=== PATIENT | male | born 1965 | race Caucasian/White ===

== ENCOUNTER 2016-04-04 21:10 | Emergency (ER) | payer OTHER ==
[2016-04-04 21:14] VITALS: BP 141/60; PULSE 88; RESP 16; TEMP 96.8
--- NOTE | 2016-04-04 21:44 | XR ---
EXAMINATION TYPE: XR foot complete RT DATE OF EXAM: 04/04/2016 9:33 PM COMPARISON: 01/15/2016 HISTORY: Foot pain TECHNIQUE: 3 views FINDINGS: I see no fracture nor dislocation. There is an Achilles calcaneal spur. Metatarsals are int act. IMPRESSION: Mild calcaneal spurring. No fracture. No change.
--- NOTE | 2016-04-04 21:45 | XR ---
EXAMINATION TYPE: XR ankle complete RT DATE OF EXAM: 04/04/2016 9:33 PM COMPARISON: 11/28/2015 HISTORY: Injury pain TECHNIQUE: 3 views FINDINGS: I see no fracture nor dislocation. Ankle mortise is anatomic. There is an Achilles calcanea l spur. IMPRESSION: No acute abnormality of the right ankle. No change.
[2016-04-04] MEDS ORDERED: IBUPROFEN 800 MG TAB PO STA (22:07)
--- NOTE | 2016-04-04 22:07 | ED ---
Lower Extremity Injury HPI - General Chief Complaint: Extremity Injury, Lower Stated Complaint: ankle pain Time Seen by Provider: 04/04/16 21:24 Source: patient, RN notes reviewed Mode of arrival: ambulatory Limitations: no limitations - History of Present Illness Initial Comments: Patient is a 50-year-old male presents to the emergency room for evaluation of right ankle pain. Patient states about 3 months ago he injured his right ankle. Patient states been having continuing pain on the medial side of his ankle. Patient states today he slipped on ice injuring his right ankle once again. Patient states he never followed up with an reimbursement specialist during the previous injury. Patient states he is now having continuing pain on the medial side of his ankle. Patient denies any swelling or numbness or tingling in his toes. Patient denies any other injuries during incident. Patient denies head trauma, loss consciousness, neck pain, numbness or tingling in extremities. Patient denies taking anything for his symptoms. - Related Data Home Medications Medication Instructions Recorded Confirmed Sertraline [Zoloft] 50 mg PO DAILY PRN 04/04/16 04/04/16 Allergies Allergy/AdvReac Type Severity Reaction Status Date / Time No Known Allergies Allergy Verified 04/04/16 21:29 Review of Systems ROS Statement: Those systems with pertinent positive or pertinent negative responses have been documented in the HPI. ROS Other: All systems not noted in ROS Statement are negative. Past Medical History Past Medical History: No Reported History History of Any Multi-Drug Resistant Organisms: None Reported Past Surgical History: Appendectomy Past Psychological History: Anxiety, Depression Smoking Status: Never smoker Past Alcohol Use History: None Reported Past Drug Use History: None Reported General Exam - General Exam Comments Initial Comments: Sitting on exam bed in no acute distress. Limitations: no limitations General appearance: alert, in no apparent distress Head exam: Present: atraumatic, normocephalic, normal inspection Eye exam: Present: normal appearance ENT exam: Present: normal exam Neck exam: Present: normal inspection Respiratory exam: Absent: respiratory distress Right Ankle exam: Present: normal inspection, full ROM, tenderness (medial malleolus) . Absent: swelling Foot/Toe exam: Present: normal inspection, full ROM. Absent: tenderness Neurovascular tendon exam: Absent: pulse deficit (2+ dorsal pedal and posterior tibial pulses), abnormal cap refill (Capillary refill less than 2 seconds) Gait: observed and normal Back exam: Present: normal inspection Neurological exam: Present: alert, oriented X3, CN II-XII intact Psychiatric exam: Present: normal affect, normal mood Skin exam: Present: warm, dry, intact, normal color. Absent: rash Course Vital Signs 04/04/16 21:10 Temperature 96.8 F L Pulse Rate 88 Respiratory 16 Rate Blood Pressure 141/60 O2 Sat by Pulse 98 Oximetry Procedures - Orthopedic Splinting/Casting Injury #1 Side: right Lower Extremity Injury Location: ankle Lower Extremity Immobilizer: Yamil wrap Medical Decision Making - Medical Decision Making Patient is a 50-year-old male since emergency room for evaluation of right ankle pain. Right ankle/foot x-ray shows no acute fractures or dislocations. Patient placed in an Yamil wrap and advised reimbursement specialist if symptoms are not improving in 7-10 days. Patient states he understands everything that was discussed with him. Return parameters discussed. Case discussed with Dr. Sweet. - Radiology Data Radiology results: report reviewed, image reviewed Disposition Clinical Impression: Right ankle sprain Disposition: HOME SELF-CARE Condition: Good Instructions: Ankle Sprain (ED) Additional Instructions: Rest, elevate and ice on and off for 10-15 minutes for the next 24-48 hours. Can take Tylenol or Motrin as needed for pain. Please follow-up with reimbursement specialist in 7-10 days if symptoms do not improve. If new symptoms develop or symptoms worsen, please return to the ER. Referrals: Jaycob Martinez MD [Primary Care Provider] - 1-2 days Kyler Bloom MD [STAFF PHYSICIAN] - 1-2 days Time of Disposition: 22:05
== END 2016-04-04 22:28 | disposition home or self-care (01) ==
LOC: EC 21:10
DX: S93.401A Sprain of unspecified ligament of right ankle, initial encounter (principal); F41.9 Anxiety disorder, unspecified; F32.9 Major depressive disorder, single episode, unspecified; W00.0XXA Fall on same level due to ice and snow, initial encounter
CPT/HCPCS: 99283

== ENCOUNTER 2017-01-08 18:02 | Emergency (ER) | payer OTHER ==
[2017-01-08 18:23] VITALS: BP 128/79; PULSE 85; RESP 18; TEMP 97.8
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
--- NOTE | 2017-01-08 19:10 | ED ---
General Adult HPI - General Chief complaint: Chest Pain Stated complaint: chest injury, SOB Time Seen by Provider: 01/08/17 18:27 Source: patient, RN notes reviewed Mode of arrival: ambulatory Limitations: no limitations - History of Present Illness Initial comments: This a 51-year-old male presents emergency Department chief complaint chest wall injury. Patient states a few days ago he was at work states she was walking backwards briskly and states that he turned around right into a metal plate does approximate 2 inches in diameter. Patient states there is an area of bruising states that he's had pain and some pain with deep inspiration. Patient states that he does not have this checked out. Denies any left-sided chest pain no left-sided chest wall injury. He states it's only over his right pectoral region. Patient states his been taking some ibuprofen which has helped some but still has some residual pain. Denies nausea, vomiting diarrhea constipation. Patient offers no other complaints. - Related Data Home Medications Medication Instructions Recorded Confirmed Ibuprofen [Motrin] 800 mg PO Q8H PRN 01/08/17 01/08/17 Previous Rx's Medication Instructions Recorded Acetaminophen-Codeine 300-30mg 1 tab PO Q4H PRN #20 tablet 01/08/17 [Tylenol #3] Allergies Allergy/AdvReac Type Severity Reaction Status Date / Time No Known Allergies Allergy Verified 01/08/17 18:55 Review of Systems ROS Statement: Those systems with pertinent positive or pertinent negative responses have been documented in the HPI. ROS Other: All systems not noted in ROS Statement are negative. Past Medical History Past Medical History: Hypertension History of Any Multi-Drug Resistant Organisms: None Reported Past Surgical History: Appendectomy Past Psychological History: Anxiety, Bipolar, Depression Smoking Status: Never smoker Past Alcohol Use History: None Reported Past Drug Use History: None Reported General Exam Limitations: no limitations General appearance: alert, in no apparent distress Head exam: Present: atraumatic, normocephalic, normal inspection Neck exam: Present: normal inspection, full ROM. Absent: tenderness, meningismus, lymphadenopathy Respiratory exam: Present: normal lung sounds bilaterally, chest wall tenderness (Moderate right anterior chest wall the right pectoral region there is an area of ecchymosis noted). Absent: respiratory distress, wheezes, rales, rhonchi, stridor, decreased breath sounds Cardiovascular Exam: Present: regular rate, normal rhythm, normal heart sounds. Absent: systolic murmur, diastolic murmur, rubs, gallop, clicks GI/Abdominal exam: Present: soft, normal bowel sounds. Absent: distended, tenderness, guarding, rebound, rigid Course Vital Signs 01/08/17 01/08/17 18:20 19:11 Temperature 97.8 F Pulse Rate 85 Respiratory 18 18 Rate Blood Pressure 128/79 O2 Sat by Pulse 99 Oximetry Medical Decision Making - Medical Decision Making 51-year-old male present emergency department for chest wall injury. There is no acute pneumothorax or rib fracture noted. Patient's chest wall contusion. Patient we discharge with pain medication and return parameters were discussed. Disposition Clinical Impression: Chest wall contusion Disposition: HOME SELF-CARE Condition: Stable Instructions: Chest Wall Pain (ED), Contusion in Adults (ED) Additional Instructions: Please return to the Emergency Department if symptoms worsen or any other concerns. Prescriptions: Acetaminophen-Codeine 300-30mg [Tylenol #3] 1 tab PO Q4H PRN #20 tablet PRN Reason: pain Referrals: Jaycob Martinez MD [Primary Care Provider] - 1-2 days Time of Disposition: 19:18
== END 2017-01-08 19:26 | disposition home or self-care (01) ==
LOC: EC 18:02
DX: S20.211A Contusion of right front wall of thorax, initial encounter (principal); W22.09XA Striking against other stationary object, initial encounter; Y99.0 Civilian activity done for income or pay; Y92.69 Other specified industrial and construction area as the place of occurrence of the external cause
CPT/HCPCS: 71020; 99283

== ENCOUNTER 2017-07-06 16:16 | Emergency (ER) | payer OTHER ==
[2017-07-06 16:21] VITALS: BP 131/76; PULSE 78; RESP 20; TEMP 98.1
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
--- NOTE | 2017-07-06 17:01 | XR ---
EXAMINATION TYPE: XR foot complete RT DATE OF EXAM: 07/06/2017 COMPARISON: NONE HISTORY: Shelving fell on foot 11 days prior, burning sensation in leg TECHNIQUE: Three-view right foot FINDINGS: No acute osseous abnormality is evident. Joint spaces are preserved. Soft tissues appear no rmal. IMPRESSION: 1. Unremarkable right foot.
--- NOTE | 2017-07-06 17:37 | ED ---
General Adult HPI - General Chief complaint: Extremity Injury, Lower Stated complaint: rt leg injury Time Seen by Provider: 07/06/17 16:31 Source: patient, RN notes reviewed Mode of arrival: ambulatory Limitations: no limitations - History of Present Illness Initial comments: 51-year-old male presents to the emergency department for a chief complaint of right ankle pain. Patient states that 11 days ago he dropped a beam on his ankle. Patient says it lacerated the skin at the time. He was not seen but cleaned it out and super glued it checked. Patient states that since that time he has had some pain in his left ankle. Patient states he is able to walk on it and move it walking on it does cause some slight pain. Patient denies any signs of infection or fever or chills at home. Patient states he just wants to make sure it isn't broken as it still hurts. Patient denies any other complaints at this time. No pain in the right knee or [place]. No pain in the right foot. Patient denies shortness of breath, chest pain, abdominal pain, nausea or vomiting. - Related Data Previous Rx's Medication Instructions Recorded Cephalexin [Keflex] 500 mg PO Q12HR #20 cap 07/06/17 Allergies Allergy/AdvReac Type Severity Reaction Status Date / Time No Known Allergies Allergy Verified 07/06/17 16:57 Review of Systems ROS Statement: Those systems with pertinent positive or pertinent negative responses have been documented in the HPI. ROS Other: All systems not noted in ROS Statement are negative. Past Medical History Past Medical History: Hypertension History of Any Multi-Drug Resistant Organisms: None Reported Past Surgical History: Appendectomy Past Psychological History: Anxiety, Bipolar, Depression Smoking Status: Never smoker Past Alcohol Use History: None Reported Past Drug Use History: None Reported General Exam Limitations: no limitations Respiratory exam: Present: normal lung sounds bilaterally. Absent: respiratory distress, wheezes, rales, rhonchi, stridor Cardiovascular Exam: Present: regular rate, normal rhythm, normal heart sounds. Absent: systolic murmur, diastolic murmur, rubs, gallop, clicks Extremities exam: Present: full ROM (Patient has full range of motion of the right ankle and is able to walk.), tenderness (Tenderness to the anterior and medial right ankle. Some tenderness to the medial malleolus.), normal capillary refill (Refill less than 2 seconds in the right ankle. Pedal pulse 2+ ), joint swelling (There is very mild swelling of the right ankle.), other ( Patient has a small 2 cm healed laceration on the anterior right lower leg. There is very mild redness around the area. No signs of cellulitis or drainage from the wound.). Absent: pedal edema, calf tenderness Course Vital Signs 07/06/17 16:18 Temperature 98.1 F Pulse Rate 78 Respiratory 20 Rate Blood Pressure 131/76 O2 Sat by Pulse 100 Oximetry Medical Decision Making - Medical Decision Making 51-year-old male presents to the emergency department for chief complaint of ankle pain on the right 11 days. Patient states he dropped a metal beam on his ankle 11 days ago. There was a laceration but he supra glued it together 11 days ago. On exam there is very mild swelling and a healed laceration of the right ankle. There is some redness around the scab but no cellulitic changes or discharge from the wound. X-ray obtained showed no acute fractures or abnormalities of the right foot or ankle. Patient was given a prescription of Keflex to prevent any infection from forming. He states his tetanus is up to date. Patient is to use Motrin or Tylenol for pain relief and follow up with primary care in 1-2 days. He was also educated on the Rice method of therapy. He will return to the emergency department if he has any worsening symptoms. Disposition Clinical Impression: Ankle pain Disposition: HOME SELF-CARE Condition: Good Instructions: Foot Contusion (ED), RICE Therapy (ED) Additional Instructions: Please use Motrin or Tylenol for pain relief. Rest, ice, and elevate the affected ankle as much as possible. Please take Keflex as directed. Please follow-up with primary care provider in one to 2 days otherwise, return to the emergency department if you have worsening symptoms. Prescriptions: Cephalexin [Keflex] 500 mg PO Q12HR #20 cap Is patient prescribed a controlled substance at d/c from ED?: No Referrals: Jaycob Martinez MD [Primary Care Provider] - 1-2 days Time of Disposition: 17:37
== END 2017-07-06 17:41 | disposition home or self-care (01) ==
LOC: EC 16:16
DX: M25.571 Pain in right ankle and joints of right foot (principal); M79.89 Other specified soft tissue disorders; Z87.828 Personal history of other (healed) physical injury and trauma; W20.8XXA Other cause of strike by thrown, projected or falling object, initial encounter; Y92.009 Unspecified place in unspecified non-institutional (private) residence as the place of occurrence of the external cause
CPT/HCPCS: 99283

== ENCOUNTER 2018-02-19 21:52 | Emergency (ER) | payer MEDICARE ==
[2018-02-19 22:02] VITALS: BP 143/81; PULSE 75; TEMP 98.1
--- NOTE | 2018-02-19 22:27 | ED ---
General Adult HPI - General Chief complaint: Chest Pain Stated complaint: Chest pain Source: patient Mode of arrival: ambulatory - History of Present Illness Initial comments: Dictation was produced using [employer] dictation software. please excuse any grammatical, word or spelling errors. Chief Complaint: 52-year-old male with past medical history of hypertension presents with sharp right chest pain. History of Present Illness: 52-year-old male with past medical history of hypertension presents with intermittent episodes of right-sided chest pain. He states that he got home from work. He works at a local [employer]. He put his thing sounds came home. While at home he had a sharp chest pain that radiated to his right chest wrapped around to the front. Patient states he's been expressing intermittent episodes of this for the past several weeks. Patient denies any shortness of breath. The ROS documented in this emergency department record has been reviewed and confirmed by me. Those systems with pertinent positive or negative responses have been documented in the HPI. All other systems are other negative and/or noncontributory. - Related Data Previous Rx's Medication Instructions Recorded Cyclobenzaprine [Flexeril] 10 mg PO TID PRN #20 tab 02/20/18 Allergies Allergy/AdvReac Type Severity Reaction Status Date / Time No Known Allergies Allergy Verified 02/19/18 22:45 Review of Systems ROS Statement: Those systems with pertinent positive or pertinent negative responses have been documented in the HPI. ROS Other: All systems not noted in ROS Statement are negative. Past Medical History Past Medical History: Hypertension History of Any Multi-Drug Resistant Organisms: None Reported Past Surgical History: Appendectomy Past Psychological History: Anxiety, Bipolar, Depression Smoking Status: Never smoker Past Alcohol Use History: Rare Past Drug Use History: None Reported General Exam - General Exam Comments Initial Comments: PHYSICAL EXAM: General Impression: Alert and oriented x3, not in acute distress HEENT: Normocephalic atraumatic, extra-ocular movements intact, pupils equal and reactive to light bilaterally, mucous membranes moist. Cardiovascular: Heart regular rate and rhythm, S1&S2 audible, no murmurs, rubs or gallops Chest: Lungs clear to auscultation bilaterally, no rhonchi, no wheeze, no rales Abdomen: Bowel sounds present, abdomen soft, non-tender, non-distended, no organomegaly Musculoskeletal: Pulses present and equal in all extremities, no peripheral edema Motor: Power 5/5 bilaterally, no focal deficits noted Neurological: CN II-XII grossly intact, no focal motor or sensory deficits noted Skin: Intact with no visualized rashes Psych: Normal affect and mood Course Vital Signs 02/19/18 22:00 Temperature 98.1 F Pulse Rate 75 Respiratory 18 Rate Blood Pressure 143/81 O2 Sat by Pulse 98 Oximetry Medical Decision Making - Medical Decision Making ED course: 52-year-old male presents with chief complaint of atypical chest pain. Vital signs upon arrival are within acceptable limits. Return evaluation obtained showing no acute processes. Patient given intravenous fluids. X-ray shows no acute processes. There is strong clinical suspicion that patient's symptoms arise from arthritis from his back. Still to follow-up with his primary care physician. Patient may benefit from MRI and possible spinal evaluation. Patient given prescription for Flexeril when necessary pain. Patient understandable agreeable to plan. This point there is no clinical suspicion of cardiac pulmonary disease. She'll be discharge. EKG interpretation: Ventricular rate 59, sinus bradycardia,. Interval 134, care is 100, QTC 417. No MO prolongation, no QTC prolongation, no ST or T-wave changes noted. Overall, this EKG is unremarkable - Lab Data Result diagrams: 02/19/18 22:30 02/19/18 22:30 Lab Results 02/19/18 02/19/18 Range/Units 22:30 22:30 WBC 7.0 (3.8-10.6) k/uL RBC 4.46 (4.30-5.90) m/uL Hgb 13.7 (13.0-17.5) gm/dL Hct 40.1 (39.0-53.0) % MCV 90.0 (80.0-100.0) fL MCH 30.7 (25.0-35.0) pg MCHC 34.1 (31.0-37.0) g/dL RDW 12.2 (11.5-15.5) % Plt Count 223 (150-450) k/uL Neutrophils % 56 % Lymphocytes % 34 % Monocytes % 6 % Eosinophils % 2 % Basophils % 0 % Neutrophils # 3.9 (1.3-7.7) k/uL Lymphocytes # 2.4 (1.0-4.8) k/uL Monocytes # 0.4 (0-1.0) k/uL Eosinophils # 0.1 (0-0.7) k/uL Basophils # 0.0 (0-0.2) k/uL Sodium 141 (137-145) mmol/L Potassium 4.1 (3.5-5.1) mmol/L Chloride 106 (98-107) mmol/L Carbon Dioxide 26 (22-30) mmol/L Anion Gap 9 mmol/L BUN 19 (9-20) mg/dL Creatinine 0.81 (0.66-1.25) mg/dL Est GFR (CKD-EPI)AfAm >90 (>60 ml/min/1.73 sqM) Est GFR (CKD-EPI)NonAf >90 (>60 ml/min/1.73 sqM) Glucose 95 (74-99) mg/dL Calcium 9.2 (8.4-10.2) mg/dL Magnesium 2.0 (1.6-2.3) mg/dL Disposition Clinical Impression: Back pain Disposition: HOME SELF-CARE Condition: Good Instructions: Flank Pain (ED) Prescriptions: Cyclobenzaprine [Flexeril] 10 mg PO TID PRN #20 tab PRN Reason: Pain Is patient prescribed a controlled substance at d/c from ED?: No Referrals: Jaycob Martinez MD [Primary Care Provider] - 1-2 days Time of Disposition: 01:22
[2018-02-19] MEDS ORDERED: LIDOCAINE 5% PATCH TOPICAL STA (22:50)
[2018-02-19 23:04] LABS: Basophils % (A) 0 %; Eosinophils # (A) 0.1 k/uL (0-0.7); Eosinophils % (A) 2 %; HCT 40.1 % (39.0-53.0); HGB 13.7 gm/dL (13.0-17.5); Lymphocytes # (A) 2.4 k/uL (1.0-4.8); Lymphocytes % (A) 34 %; MCH 30.7 pg (25.0-35.0); MCHC 34.1 g/dL (31.0-37.0); Mean Platelet Volume 7.2; Monocytes # (A) 0.4 k/uL (0-1.0); Monocytes % (A) 6 %; Neutrophils # (A) 3.9 k/uL (1.3-7.7); Neutrophils % (A) 56 %; Platelet Count 223 k/uL (150-450); RBC 4.46 m/uL (4.30-5.90); RDW 12.2 % (11.5-15.5)
[2018-02-19 23:06] LABS: Anion Gap 9 mmol/L; Blood Urea Nitrogen 19 mg/dL (9-20); Calcium 9.2 mg/dL (8.4-10.2); Carbon Dioxide 26 mmol/L (22-30); Chloride 106 mmol/L (98-107); Glucose 95 mg/dL (74-99); Potassium 4.1 mmol/L (3.5-5.1); Sodium 141 mmol/L (137-145)
--- NOTE | 2018-02-19 23:11 | XR ---
EXAM: XR Chest, 2 Views CLINICAL HISTORY: ITS.REASON XR Reason: Pain TECHNIQUE: Frontal and lateral views of the chest. COMPARISON: No relevant prior studies available. FINDINGS: Lungs: Unremarkable. No consolidation. Pleural space: Unremarkable. No pneumothorax. Heart: Unremarkable. No cardiomegaly. Mediastinum: Unremarkable. Bones/joints: Unremarkable. IMPRESSION: Normal chest x-rays.
[2018-02-20 01:37] VITALS: RESP 17
== END 2018-02-20 01:28 | disposition home or self-care (01) ==
LOC: EC 21:52
DX: M54.9 Dorsalgia, unspecified (principal); R07.89 Other chest pain; R00.1 Bradycardia, unspecified
CPT/HCPCS: 36415; 71046; 80048; 83735; 85025; 93005; 99285

== ENCOUNTER → 2019-12-06 | Outpatient (CLI) | payer OTHER ==
--- NOTE | 2019-12-06 14:39 | XR ---
EXAMINATION TYPE: XR Hip Complete LT DATE OF EXAM: 12/06/2019 COMPARISON: None HISTORY: Pain. TECHNIQUE: 2 view left hip FINDINGS: Femoral head articulates with the acetabulum. No acute fracture or dislocation is evident. Joint spaces preserved. Follow-up exams can be performed 7-10 days from acute trauma for continued pain. IMPRESSION: 1. Normal 2 view left hip
== END | disposition home or self-care (01) ==
LOC: RADXRMAIN 14:20
PROVIDERS: ATTEND Emergency Medicine
DX: M71.552 Other bursitis, not elsewhere classified, left hip (principal)
CPT/HCPCS: 73502

== ENCOUNTER 2021-12-22 16:27 | Emergency (ER) | payer BC, MEDICARE ==
[2021-12-22 16:45] VITALS: TEMP 97.8
[2021-12-22] MEDS ORDERED: DOXYCYCLINE 100 MG CAP PO STA (19:09)
[2021-12-22] MEDS ORDERED: TOBRAMYCIN 0.3% OPHTH OINT 3.5 GM TUBE RIGHT EYE STA (19:09)
--- NOTE | 2021-12-22 19:13 | ED ---
Eye Problem HPI - General Chief complaint: Eye Problems Stated complaint: eye problem Time Seen by Provider: 12/22/21 18:59 Source: patient Mode of arrival: ambulatory Limitations: no limitations - History of Present Illness Initial comments: THIS is a pleasant 56-year-old male with no significant past medical history. He presents to the emergency department today complaining of redness and swelling to his right upper eyelid. Patient states his been going on for about 1 week and seems to be getting worse. Patient has been trying warm compresses. Patient denying any fever or chills. States that he is getting occasional blurred vision as he feels like the eyelid is causing some pressure over his eye itself. He denies any current discharge but did have some crusting from the eye noted this morning. No headache, no fever or chills, no changes in hearing, no sore throat or difficulty with speech, no neck pain, no chest pain or shortness of breath, no abdominal pain, no nausea or vomiting, no changes in urination or bowel movements, no numbness or tingling, no extremity pain, no skin rashes or lesions. Past medical, surgical, social, and family history reviewed. - Related Data Previous Rx's Medication Instructions Recorded Cyclobenzaprine [Flexeril] 10 mg PO TID PRN #20 tab 02/20/18 Doxycycline [Vibramycin] 100 mg PO BID 1 Days #20 each 12/22/21 Allergies Allergy/AdvReac Type Severity Reaction Status Date / Time No Known Allergies Allergy Verified 12/22/21 16:45 Review of Systems ROS Statement: Those systems with pertinent positive or pertinent negative responses have been documented in the HPI. ROS Other: All systems not noted in ROS Statement are negative. Past Medical History Past Medical History: Hypertension History of Any Multi-Drug Resistant Organisms: None Reported Past Surgical History: Appendectomy Past Psychological History: Anxiety, Bipolar, Depression Smoking Status: Never smoker Past Alcohol Use History: Rare Past Drug Use History: None Reported General Exam - General Exam Comments Initial Comments: Patient does not appear to be ill or toxic. Limitations: no limitations General appearance: alert, in no apparent distress Head exam: Present: atraumatic, normocephalic, normal inspection Eye exam: Present: PERRL, EOMI, other (Patient has erythema and mild tenderness to the right upper eyelid, appears to be consistent with a hordeolum. No evidence of periorbital cellulitis. No lesions, no vesicles. No discharge.). Absent: scleral icterus, conjunctival injection, nystagmus, periorbital swelling, periorbital tenderness ENT exam: Present: normal exam, mucous membranes moist Neck exam: Present: normal inspection. Absent: tenderness, meningismus, lymphadenopathy Respiratory exam: Present: normal lung sounds bilaterally. Absent: respiratory distress, wheezes, rales, rhonchi, stridor Cardiovascular Exam: Present: regular rate, normal rhythm, normal heart sounds. Absent: systolic murmur, diastolic murmur, rubs, gallop, clicks GI/Abdominal exam: Present: soft. Absent: tenderness Extremities exam: Present: normal inspection Back exam: Present: normal inspection Neurological exam: Present: alert, oriented X3, CN II-XII intact Psychiatric exam: Present: normal affect, normal mood Skin exam: Present: warm, dry, intact. Absent: rash, cyanosis, diaphoretic, vesicles, petechiae, pallor, mottled, abrasion Course Vital Signs 12/22/21 16:42 Temperature 97.8 F Pulse Rate 86 Respiratory 16 Rate Blood Pressure 147/84 O2 Sat by Pulse 98 Oximetry Medical Decision Making - Medical Decision Making Patient's symptomatology and findings. Be consistent with a hordeolum involving the right upper eyelid. However this is worsening over 7 days with conservative therapy. There is fairly significant erythema adjacent to a papular area consistent with hordeolum. Does not appear to be consistent with periorbital cellulitis or orbital cellulitis. His vital signs are stable. Patient does not appear to be ill or toxic systemically. Loly treat the patient with both tobramycin eye ointment and doxycycline. We'll have the patient follow up with ophthalmology in the morning. Patient was told to return to the ER for any signs or symptoms worsen. Told to return immediately if any other problems arise. All questions answered. Treatment plan discussed. Patient in agreement Every effort has been made to ensure accuracy of this dictation. However, due to the limitations of electronic medical records and dictation devices, errors in charting still occur. Manufacturing Production Manager Dr. Nguyen Disposition Clinical Impression: Hordeolum of right upper eyelid Disposition: HOME SELF-CARE Condition: Stable Instructions (If sedation given, give patient instructions): Lacy (ED) Additional Instructions: Call ophthalmology at 8 AM tomorrow morning to get rechecked tomorrow. Take the antibiotics as directed. Use the eye antibiotic ointment, 1 cm to the right eye every 6 hours. Return to the ER immediately if any symptoms worsen, new symptoms arise, or any other problems develop. Prescriptions: Doxycycline [Vibramycin] 100 mg PO BID 1 Days #20 each Is patient prescribed a controlled substance at d/c from ED?: No Referrals: Sherman Fontenot MD [STAFF PHYSICIAN] - 12/23/21 8:00 am Time of Disposition: 19:13
[2021-12-22 21:16] VITALS: BP 146/80; PULSE 60; RESP 20
== END 2021-12-22 21:20 | disposition home or self-care (01) ==
LOC: EC 16:27
DX: H00.011 Hordeolum externum right upper eyelid (principal); I10 Essential (primary) hypertension
CPT/HCPCS: 99283

== ENCOUNTER 2022-03-17 12:14 | Emergency (ER) | payer BC ==
[2022-03-17] MEDS ORDERED: KETOROLAC 15 MG/ML 1 ML VIAL IVP STA (12:40)
[2022-03-17] MEDS ORDERED: SODIUM CHLORIDE 0.9% 1,000 ML IV ONE (12:41)
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
[2022-03-17 13:15] LABS: Basophils % (A) 0 %; Eosinophils # (A) 0.1 k/uL (0-0.7); Eosinophils % (A) 1 %; HCT 40.2 % (39.0-53.0); Lymphocytes # (A) 0.9 k/uL (1.0-4.8); Lymphocytes % (A) 18 %; MCH 31.8 pg (25.0-35.0); MCV 90.8 fL (80.0-100.0); Mean Platelet Volume 7.9; Monocytes # (A) 0.3 k/uL (0-1.0); Monocytes % (A) 6 %; Neutrophils # (A) 3.9 k/uL (1.3-7.7); Neutrophils % (A) 73 %; Platelet Count 201 k/uL (150-450); RBC 4.42 m/uL (4.30-5.90); RDW 12.2 % (11.5-15.5); WBC 5.3 k/uL (3.8-10.6)
[2022-03-17 13:32] LABS: ALT 23 U/L (4-49); AST 25 U/L (17-59); African American GFR (CKD) >90 (>60 ml/min/1.73 sqM); Albumin 4.4 g/dL (3.5-5.0); Alkaline Phosphatase 64 U/L (38-126); Anion Gap 7 mmol/L; Blood Urea Nitrogen 18 mg/dL (9-20); Calcium 8.8 mg/dL (8.4-10.2); Carbon Dioxide 27 mmol/L (22-30); Chloride 108 mmol/L (98-107); Glucose 115 mg/dL (74-99); Magnesium 1.8 mg/dL (1.6-2.3); Non-African American GFR(CKD) >90 (>60 ml/min/1.73 sqM); Potassium 4.3 mmol/L (3.5-5.1); Sodium 142 mmol/L (137-145); Total Bilirubin 0.8 mg/dL (0.2-1.3); Total Protein 7.3 g/dL (6.3-8.2)
[2022-03-17 13:40] LABS: INR 0.9 (<1.2); Partial Thromboplastin Time 21.4 sec (22.0-30.0); Prothrombin Time 9.9 sec (9.0-12.0)
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
--- NOTE | 2022-03-17 14:19 | XR ---
EXAMINATION TYPE: XR chest 2V DATE OF EXAM: 03/17/2022 1:46 PM COMPARISON: Chest radiographs from 02/19/2018. TECHNIQUE: XR chest 2V Frontal and lateral views of the chest. CLINICAL INDICATION:Male, 56 years old with history of Chest Pain; FINDINGS: Lungs/Pleura: There is no evidence of pleural effusion, focal consolidation, or pneumothorax. Pulmonary vascularity: Unremarkable. Heart/mediastinum: Cardiomediastinal silhouette is unremarkable. Musculoskeletal: No acute osseous pathology. IMPRESSION: No acute cardiopulmonary disease/process.
--- NOTE | 2022-03-17 14:21 | XR ---
EXAMINATION TYPE: XR lumbosacral spine min 4V DATE OF EXAM: 03/17/2022 1:46 PM INDICATION: Patient age:Male; 56 years old; Reason for study: Acute on chronic lower back pain; COMPARISON: 06/10/2015 TECHNIQUE: Frontal, lateral , bilateral oblique and coned in L5-S1 lateral views of the spine. FINDINGS: No evidence of any acute osseous pathology. No evidence of loss of vertebral body height i s seen. There is normal alignment of the lumbar vertebral bodies. Minimal marginal osteophyte formati on throughout the visualized spine. There is facet joint arthropathy throughout the spine. Scattered at least mild neural foraminal stenosis. IMPRESSION: 1. No acute fracture. 2. Mild multilevel disc degeneration.
[2022-03-17 16:18] VITALS: BP 123/78; PULSE 85; RESP 16; TEMP 97.1
== END 2022-03-17 16:18 | disposition home or self-care (01) ==
LOC: EC 12:14
DX: S00.83XA Contusion of other part of head, initial encounter (principal); S39.012A Strain of muscle, fascia and tendon of lower back, initial encounter; R42 Dizziness and giddiness; I10 Essential (primary) hypertension; F41.9 Anxiety disorder, unspecified; F31.9 Bipolar disorder, unspecified; Y09 Assault by unspecified means
CPT/HCPCS: 99285 ×2; 96374 ×2; 96361 ×2; 36415; 93005; 80053; 83735; 84484; 85025; 85610; 85730; 72110; 71046; 72125; 70450; 70480; J1885

== ENCOUNTER 2023-10-12 16:44 | Observation (INO) | payer BC ==
--- NOTE | 2023-10-12 17:31 | ED ---
General Adult HPI - General Chief complaint: Neuro Symptoms/Deficit Stated complaint: headache, locking hands, spacing out Time Seen by Provider: 10/12/23 16:55 Source: patient Mode of arrival: ambulatory Limitations: no limitations - History of Present Illness Initial comments: Patient is a 57-year-old gentleman presenting today for memory issues and hand spasms. History is limited by patient's memory problems. He states that he believes approximately 2 weeks ago he had an episode where he had a headache at the back of his head and squeezing chest pain. This resolved spontaneously however he is continue to have persistent intermittent headaches. He states that over the last 2 weeks he has also had episodes of memory loss where he will do things such as "sit down on his computer and forget what he is doing". During discussion patient becomes tearful, stating he is afraid that he does not know what is happening. He does have some difficulty answering questions. He also endorses spasms and cramping in his hands bilaterally. He states his fingers will tingle and cramp "a leg cramp" and not relax. - Related Data Home Medications Medication Instructions Recorded Confirmed Magnesium Oxide [Mag-Ox] 400 mg PO DAILY 10/12/23 10/12/23 Previous Rx's Medication Instructions Recorded diazePAM [Valium] 5 mg PO Q8HR PRN 3 Days #9 tab 10/13/23 Allergies Allergy/AdvReac Type Severity Reaction Status Date / Time No Known Allergies Allergy Verified 10/12/23 21:06 Review of Systems ROS Statement: Those systems with pertinent positive or pertinent negative responses have been documented in the HPI. Past Medical History Past Medical History: Hypertension History of Any Multi-Drug Resistant Organisms: None Reported Past Surgical History: Appendectomy Past Psychological History: Anxiety, Bipolar, Depression Smoking Status: Never smoker Past Alcohol Use History: Rare Past Drug Use History: None Reported General Exam - General Exam Comments Initial Comments: PE: CONSTITUTIONAL: no apparent distress, well appearing SKIN: warm, dry, no jaundice, hives or petechiae EYES: pupils are equally round, extraocular movements intact without nystagmus, clear conjunctiva, non-icteric sclera HENT: normocephalic, atraumatic, moist mucus membranes, oropharynx clear without exudates NECK: Nontender and supple with no nuchal rigidity, no lymphadenopathy, full range of motion PULMONARY: clear to auscultation without wheezes, rhonchi, or rales, normal excursion, no accessory muscle use and no stridor CARDIOVASCULAR: regular rate, rhythm, normal S1 and S2. No appreciated murmurs. Strong radial pulses with intact distal perfusion GASTROINTESTINAL: soft, non-tender, non-distended, no palpable masses, no rebound or guarding LYMPHATICS: no edema in lower extremities MUSCULOSKELETAL: Extremities are nontender to palpation and have no gross deformity, no edema, redness, or swelling NEUROLOGIC: _a/o x 3, GCS 15, Speech is clear however mentation is intermittently slowed,while asking questions, patient will pause for a prolonged amount of time and try to find an answer to questions and become tearful and anxious because he is having difficulty remembering exact events, timeline of events over the last few weeks, thought process is linear. Moves all extremities x 4 without motor or sensory deficit Cranial nerves: II (visual paredes without defects), III, IV and (extraocular movements are intact, pupils are equal with normal reaction to light), V (intact facial sensation and jaw opening), VII (no facial droop), IX and X (normal palate movement, midline uvula, normal voice), XI (symmetrical shoulder shrug and lateral head rotation against resistance), XII (midline tongue protrusion). Motor strength is 5/5 in all extremities. No abnormal movements. Normal muscle tone. Sensation to light touch is intact bilaterally. No cerebellar signs ([id number], [id number]) PSYCHIATRIC: intermittently tearful mood and affect, thought process as above, is linear and overall clear, with exception of memory issues as noted in neuro exam Limitations: no limitations Course Vital Signs 10/12/23 10/12/23 10/12/23 16:46 20:00 21:00 Temperature 98.4 F Pulse Rate 76 71 72 Pulse Rate [ Pulse Oximetery ] Respiratory 20 18 12 Rate Blood Pressure 124/80 130/75 130/75 Blood Pressure [Left Arm] O2 Sat by Pulse 94 L 96 97 Oximetry 10/12/23 10/12/23 10/12/23 22:07 22:39 23:11 Temperature 98.0 F Pulse Rate 64 65 Pulse Rate [ 80 Pulse Oximetery ] Respiratory 16 18 18 Rate Blood Pressure 113/71 112/81 Blood Pressure 108/68 [Left Arm] O2 Sat by Pulse 96 98 99 Oximetry - Reevaluation(s) Reevaluation #1: On evaluation patient describes waxing and waning symptoms, stroke alert was not called due to waxing and waning symptoms for the last 2 weeks. NIH 0. 10/12/23 17:31 EKG Findings - EKG Comments: EKG Findings:: Sinus rhythm. Rate 71 bpm. Normal intervals. Normal axis. No ST elevations or depressions. Compared EKG performed on 03/10/2022, no significant changes, no new ST depressions or elevations from prior. No arrhythmias Medical Decision Making - Medical Decision Making Was pt. sent in by a medical professional or institution (, PA, ANCILLARY SERVICES MANAGER, urgent care, hospital, or long term...) When possible be specific @ -No Did you speak to anyone other than the patient for history (EMS, parent, family, police, friend...)? What history was obtained from this source @ -No Did you review nursing and triage notes (agree or disagree)? Why? @ -I reviewed and agree with nursing and triage notes- reviewed, agree with exception of the fact that overall patient initially does not seem confused however when attempting to assess patient for components of history and asked why he is here today he has difficulty remembering specific answers and events Were old charts reviewed (outside hosp., previous admission, EMS record, old EKG, old radiological studies, urgent care reports/EKG's, long term records)? Report findings @ -Most recent charts available to review are from 2021 Differential Diagnosis (chest pain, altered mental status, abdominal pain women, abdominal pain men, vaginal bleeding, weakness, fever, dyspnea, syncope, headache, dizziness, GI bleed, back pain, seizure, CVA, palpatations, mental health, musculoskeletal)? @ -Differential diagnosis remains broad however top considerations include Hypoglycemia, metabolic abnormality, electrode abnormality, ETOH, trauma, myxedema coma, infection, psychosis, recent CVA, seizures, transient global amnesia, this is not meant to be an all-inclusive list EKG interpreted by me (3pts min.). @ -As above X-rays interpreted by me (1pt min.). @ -Chest x-ray read by radiologist as no acute process, I reviewed imaging and agree with radiologist interpretation CT interpreted by me (1pt min.). @CT brain/CTA negative for acute process, read by radiologist as no evidence of dissection of the cervical internal carotid arteries or vertebral arteries or any evidence of significant stenosis at the carotid bifurcations, no evidence of intracranial high-grade stenosis or intracranial aneurysm, of note left posterior circulation anatomic variant, left vertebral artery dominance, I reviewed CT brain and CTA, agree with radiologist interpretation, I see no evidence of dissection, occlusion, hemorrhage or aneurysm U/S interpreted by me (1pt. min.). @ -None done What testing was considered but not performed or refused? (CT, X-rays, U/S, labs)? Why? @ -None What meds were considered but not given or refused? Why? @ -None Did you discuss the management of the patient with other professionals (professionals i.e. , PA, ANCILLARY SERVICES MANAGER, lab, RT, psych nurse, social science professor, cleaner operator, teacher, parachute officer, outpatient case manager)? Give summary @ -No Was smoking cessation discussed for >3mins.? @ -No Was critical care preformed (if so, how long)? @ -No Were there social determinants of health that impacted care today? How? (Homelessness, low income, unemployed, alcoholism, drug addiction, transportation, low edu. Level, literacy, decrease access to med. care, skilled nursing, rehab)? @ -No Was there de-escalation of care discussed even if they declined (Discuss DNR or withdrawal of care, Hospice)? DNR status @ -No What co-morbidities impacted this encounter? (DM, HTN, Smoking, COPD, CAD, Cancer, CVA, ARF, Chemo, Hep., AIDS, mental health diagnosis, sleep apnea, morbid obesity)? @ -None Was patient admitted / discharged? Hospital course, mention meds given and route, prescriptions, significant lab abnormalities, going to OR and other pertinent info. @ -Hospital course Patient admitted to Dr. Quigley- Patient is a 57-year-old gentleman presenting today for memory issues, headaches and muscle spasms. On initial assessment patient is resting comfortably in bed in no acute distress. His speech is clear and he is able to converse clearly however upon attempting to ask specific questions about history and obtain further history as to why he presented today and what has been happening at home that prompted his to send him to the emergency department, patient has to stop intermittently and appears to work very hard to try to remember answers to these questions and then becomes tearful when he cannot remember the answers. Patient reports that this is been ongoing for 2 weeks and he has no focal neurologic deficits on exam with an NIH of 0, so a stroke alert was not called however CT brain and CTA head/neck ordered, as well as Tylenol for headache, coagulation studies, CBC, urinalysis, urine drug screen, CMP, CK, troponin, blood alcohol, magnesium level, TSH, CBC Patient agreeable with current plan of care. Labs and imaging reviewed. Grossly within normal limits. Abnormal values not concerning for acute pathology related to presenting complaint. Discussed with patient and his, now at bedside, concern of intermittent memory loss and possible need for MRI/imaging/testing, to further evaluate for recent CVA, seizures, etc. Patient agreeable to admission. Patient admitted in stable condition. Undiagnosed new problem with uncertain prognosis? @ -Yes Drug Therapy requiring intensive monitoring for toxicity (Heparin, Nitro, Insulin, Cardizem)? @ -No Were any procedures done? @ -No Diagnosis/symptom? @ -Memory changes, headache, muscle spasms Acute, or Chronic, or Acute on Chronic? @ -Acute Uncomplicated (without systemic symptoms) or Complicated (systemic symptoms)? @ -Complicated Side effects of treatment? @ -No Exacerbation, Progression, or Severe Exacerbation? @ -No Poses a threat to life or bodily function? How? (Chest pain, [place], [place], pneumonia, PE, COPD, DKA, ARF, appy, cholecystitis, CVA, Diverticulitis, Homicidal, Suicidal, threat to staff... and all critical care pts) @ -Yes, if secondary to CVA or seizures and patient continues without further workup/treatment and/or diagnoses these etiology could cause serious disability and or if left untreated - Lab Data Result diagrams: 10/12/23 18:50 10/12/23 18:40 Lab Results 10/12/23 10/12/23 10/12/23 Range/Units 18:29 18:40 18:40 WBC (3.8-10.6) k/uL RBC (4.30-5.90) m/uL Hgb (13.0-17.5) gm/dL Hct (39.0-53.0) % MCV (80.0-100.0) fL MCH (25.0-35.0) pg MCHC (31.0-37.0) g/dL RDW (11.5-15.5) % Plt Count (150-450) k/uL MPV Neutrophils % % Lymphocytes % % Monocytes % % Eosinophils % % Basophils % % Neutrophils # (1.3-7.7) k/uL Lymphocytes # (1.0-4.8) k/uL Monocytes # (0-1.0) k/uL Eosinophils # (0-0.7) k/uL Basophils # (0-0.2) k/uL PT (10.0-12.5) sec INR (<1.2) APTT (22.0-30.0) sec Sodium 141 (137-145) mmol/L Potassium 4.1 (3.5-5.1) mmol/L Chloride 107 (98-107) mmol/L Carbon Dioxide 25 (22-30) mmol/L Anion Gap 9 mmol/L BUN 13 (9-20) mg/dL Creatinine 0.97 (0.66-1.25) mg/dL Est GFR (CKD-EPI)AfAm >90 (>60 ml/min/1.73 sqM) Est GFR (CKD-EPI)NonAf 86 (>60 ml/min/1.73 sqM) Glucose 91 (74-99) mg/dL Calcium 9.4 (8.4-10.2) mg/dL Magnesium 2.0 (1.6-2.3) mg/dL Total Bilirubin 0.6 (0.2-1.3) mg/dL AST 29 (17-59) U/L ALT 26 (4-49) U/L Alkaline Phosphatase 61 (38-126) U/L Creatine Kinase 131 (55-170) U/L Troponin I <0.012 (0.000-0.034) ng/mL Total Protein 7.7 (6.3-8.2) g/dL Albumin 4.7 (3.5-5.0) g/dL TSH 2.560 (0.465-4.680) mIU/L Urine Color Colorless Urine Appearance Clear (Clear) Urine pH 6.0 (5.0-8.0) Ur Specific [place] 1.006 (1.001-1.035) Urine Protein Negative (Negative) Urine Glucose (UA) Negative (Negative) Urine Ketones Negative (Negative) Urine Blood Negative (Negative) Urine Nitrite Negative (Negative) Urine Bilirubin Negative (Negative) Urine Urobilinogen <2.0 (<2.0) mg/dL Ur Leukocyte Esterase Negative (Negative) Urine Opiates Screen Not Detected (NotDetected) Ur Oxycodone Screen Not Detected (NotDetected) Urine Methadone Screen Not Detected (NotDetected) Ur Barbiturates Screen Not Detected (NotDetected) U Tricyclic Antidepress Not Detected (NotDetected) Ur Phencyclidine Scrn Not Detected (NotDetected) Ur Amphetamines Screen Not Detected (NotDetected) U Methamphetamines Scrn Not Detected (NotDetected) U Benzodiazepines Scrn Not Detected (NotDetected) Urine Cocaine Screen Not Detected (NotDetected) U Marijuana (THC) Screen Not Detected (NotDetected) Serum Alcohol <10 mg/dL 10/12/23 10/12/23 Range/Units 18:50 19:30 WBC 6.3 (3.8-10.6) k/uL RBC 5.12 (4.30-5.90) m/uL Hgb 15.6 (13.0-17.5) gm/dL Hct 46.8 (39.0-53.0) % MCV 91.5 (80.0-100.0) fL MCH 30.6 (25.0-35.0) pg MCHC 33.4 (31.0-37.0) g/dL RDW 12.0 (11.5-15.5) % Plt Count 251 (150-450) k/uL MPV 7.1 Neutrophils % 61 % Lymphocytes % 29 % Monocytes % 6 % Eosinophils % 2 % Basophils % 1 % Neutrophils # 3.8 (1.3-7.7) k/uL Lymphocytes # 1.8 (1.0-4.8) k/uL Monocytes # 0.4 (0-1.0) k/uL Eosinophils # 0.1 (0-0.7) k/uL Basophils # 0.0 (0-0.2) k/uL PT 10.9 (10.0-12.5) sec INR 1.0 (<1.2) APTT 25.2 (22.0-30.0) sec Sodium (137-145) mmol/L Potassium (3.5-5.1) mmol/L Chloride (98-107) mmol/L Carbon Dioxide (22-30) mmol/L Anion Gap mmol/L BUN (9-20) mg/dL Creatinine (0.66-1.25) mg/dL Est GFR (CKD-EPI)AfAm (>60 ml/min/1.73 sqM) Est GFR (CKD-EPI)NonAf (>60 ml/min/1.73 sqM) Glucose (74-99) mg/dL Calcium (8.4-10.2) mg/dL Magnesium (1.6-2.3) mg/dL Total Bilirubin (0.2-1.3) mg/dL AST (17-59) U/L ALT (4-49) U/L Alkaline Phosphatase (38-126) U/L Creatine Kinase (55-170) U/L Troponin I (0.000-0.034) ng/mL Total Protein (6.3-8.2) g/dL Albumin (3.5-5.0) g/dL TSH (0.465-4.680) mIU/L Urine Color Urine Appearance (Clear) Urine pH (5.0-8.0) Ur Specific [place] (1.001-1.035) Urine Protein (Negative) Urine Glucose (UA) (Negative) Urine Ketones (Negative) Urine Blood (Negative) Urine Nitrite (Negative) Urine Bilirubin (Negative) Urine Urobilinogen (<2.0) mg/dL Ur Leukocyte Esterase (Negative) Urine Opiates Screen (NotDetected) Ur Oxycodone Screen (NotDetected) Urine Methadone Screen (NotDetected) Ur Barbiturates Screen (NotDetected) U Tricyclic Antidepress (NotDetected) Ur Phencyclidine Scrn (NotDetected) Ur Amphetamines Screen (NotDetected) U Methamphetamines Scrn (NotDetected) U Benzodiazepines Scrn (NotDetected) Urine Cocaine Screen (NotDetected) U Marijuana (THC) Screen (NotDetected) Serum Alcohol mg/dL Disposition Clinical Impression: Memory changes, Headache, Muscle spasm Disposition: ADMITTED IP TO THIS [facility] Condition: Stable Is patient prescribed a controlled substance at d/c from ED?: No Time of Disposition: 21:00
--- NOTE | 2023-10-12 18:09 | XR ---
EXAMINATION TYPE: XR chest 2V DATE OF EXAM: 10/12/2023 COMPARISON: 03/17/2022 HISTORY: Shortness of breath TECHNIQUE: Frontal and lateral views of the chest are obtained. FINDINGS: Scattered senescent parenchymal changes noted. Hyperinflation compatible with COPD. No evidence for infiltrate. No evidence for atelectasis. Heart size is stable. Mediastinal structures are stable and grossly unremarkable. No evidence for hilar prominence. Degenerative changes dorsal spine. IMPRESSION: 1. No evidence for acute pulmonary disease.
[2023-10-12] MEDS: ACETAMINOPHEN TAB 500 MG TAB PO STA (18:36)
[2023-10-12 18:52] LABS: Appearance,Urine Clear (Clear); Bilirubin,Urine Negative (Negative); Blood,Urine Negative (Negative); Color,Urine Colorless; Glucose,Urine (UA) Negative (Negative); Ketones,Urine Negative (Negative); Leukocyte Esterase,Urine Negative (Negative); Nitrite,Urine Negative (Negative); Protein,Urine Negative (Negative); Specific Gravity,Urine 1.006 (1.001-1.035); Urobilinogen,Urine <2.0 mg/dL (<2.0)
[2023-10-12 18:56] LABS: Basophils % (A) 1 %; Eosinophils # (A) 0.1 k/uL (0-0.7); Eosinophils % (A) 2 %; HCT 46.8 % (39.0-53.0); HGB 15.6 gm/dL (13.0-17.5); Lymphocytes # (A) 1.8 k/uL (1.0-4.8); Lymphocytes % (A) 29 %; MCH 30.6 pg (25.0-35.0); MCHC 33.4 g/dL (31.0-37.0); MCV 91.5 fL (80.0-100.0); Mean Platelet Volume 7.1; Monocytes # (A) 0.4 k/uL (0-1.0); Monocytes % (A) 6 %; Neutrophils # (A) 3.8 k/uL (1.3-7.7); Neutrophils % (A) 61 %; Platelet Count 251 k/uL (150-450); RBC 5.12 m/uL (4.30-5.90); WBC 6.3 k/uL (3.8-10.6)
[2023-10-12 19:01] LABS: ALT 26 U/L (4-49); AST 29 U/L (17-59); African American GFR (CKD) >90 (>60 ml/min/1.73 sqM); Albumin 4.7 g/dL (3.5-5.0); Alcohol <10 mg/dL; Alkaline Phosphatase 61 U/L (38-126); Anion Gap 9 mmol/L; Blood Urea Nitrogen 13 mg/dL (9-20); Calcium 9.4 mg/dL (8.4-10.2); Carbon Dioxide 25 mmol/L (22-30); Chloride 107 mmol/L (98-107); Creatine Kinase 131 U/L (55-170); Glucose 91 mg/dL (74-99); Non-African American GFR(CKD) 86 (>60 ml/min/1.73 sqM); Potassium 4.1 mmol/L (3.5-5.1); Sodium 141 mmol/L (137-145); Total Bilirubin 0.6 mg/dL (0.2-1.3); Total Protein 7.7 g/dL (6.3-8.2)
[2023-10-12 19:07] LABS: Urn Cannabinoid Scrn Not Detected (NotDetected)
[2023-10-12 19:08] LABS: Amphetamine Screen,Urine Not Detected (NotDetected); Barbiturate Screen,Urine Not Detected (NotDetected); Benzodiazepines Screen,Urine Not Detected (NotDetected); Cocaine Screen,Urine Not Detected (NotDetected); Methadone Screen, Urine Not Detected (NotDetected); Opiate Screen,Urine Not Detected (NotDetected); Oxycodone Screen, Urine Not Detected (NotDetected); Phencyclidine Screen,Urine Not Detected (NotDetected); Tricyclic Antidepressant,Urine Not Detected (NotDetected)
--- NOTE | 2023-10-12 19:45 | CT ---
EXAMINATION TYPE: CT brain wo con CT DLP: 1217.6 mGycm, Automated exposure control for dose reduction was used. DATE OF EXAM: 10/12/2023 7:17 PM COMPARISON: CT head 03/17/2022. CTA head from the same day. CLINICAL INDICATION:Male, 57 years old with history of Headaches, intermittent memory loss, weakness and ams TECHNIQUE: Brain: Axial CT images of the brain were obtained with coronal and sagittal reformats created and rev iewed. Contrast used: None. Oral contrast used: None. FINDINGS: Brain: Extra-axial spaces: No abnormal extra-axial fluid collections. Ventricular system: Within normal limits Cerebral parenchyma: No acute intraparenchymal hemorrhage or mass effect. The hamilton-white junction is well differentiated. Cerebellum: Unremarkable. Mass effect: No evidence of midline shift. Intracranial vasculature: unremarkable Soft tissues: Normal. Calvarium/osseous structures: No depressed skull fracture. Paranasal sinuses and mastoid air cells: Clear. Visualized orbits: Orbital contents are intact. IMPRESSION: No acute intracranial process.
--- NOTE | 2023-10-12 19:59 | CT ---
EXAMINATION TYPE: CT angio head neck CT DLP: 527.5 mGycm, Automated exposure control for dose reduction was used. DATE OF EXAM: 10/12/2023 7:31 PM COMPARISON: CT head from the same day. CLINICAL INDICATION:Male, 57 years old with history of Headaches, intermittent memory loss, aphasia; PHH, weakness and ams, headache TECHNIQUE: Axially acquired helical CT angiogram of the head and neck was obtained with contrast. Axi al images are supplemented with 3D reconstructions and MIP images which were post-processed at an in dependent workstation. NASCET criteria used. Contrast used:65 cc mL of Isovue 370 with IV Contrast, Oral contrast used: None. FINDINGS: CTA HEAD: Please see noncontrasted head CT from the same day for further intracranial details. The visualized portions of the internal carotid arteries, middle cerebral arteries, anterior cerebral arteries, and posterior cerebral arteries are patent. The left posterior cerebral artery is slightly diminutive. There is a patent left posterior communicating artery. The right posterior communicating artery is hypoplastic. The basilar and vertebral arteries are patent. Right vertebral artery is again noted to be diminutive . CTA NECK: Right Carotid System: The common carotid artery and external carotid artery are patent. The carotid bifurcation demonstrate s minimal atherosclerotic calcifications with no evidence of hemodynamically significant stenosis. Th e right internal carotid artery demonstrate normal size without significant narrowing otherwise. Left Carotid System: The common carotid artery and external carotid artery are patent. The carotid bifurcation demonstrate s no evidence of hemodynamically significant stenosis. The remaining portions of the internal carotid artery demonstrate normal size without significant narrowing. Vertebral arteries are patent without evidence hemodynamically significant stenosis. The right verteb ral artery is diminutive in comparison to the left. There is a three-vessel aortic arch. The origins of the great vessels are patent. No evidence of hemo dynamically significant stenosis. Upper thorax: Calcified granuloma noted in the right lung apex. Degenerative changes of the spine. IMPRESSION: 1. No evidence of dissection of the cervical internal carotid arteries or vertebral arteries or any e vidence of significant stenosis at the carotid bifurcations. 2. No evidence of intracranial high-grade stenosis or intracranial aneurysm. 3. Left posterior circulation anatomic variant. 4. Left vertebral artery dominance.
[2023-10-12 20:29] LABS: Partial Thromboplastin Time 25.2 sec (22.0-30.0); Prothrombin Time 10.9 sec (10.0-12.5)
[2023-10-12] MEDS ORDERED: NALOXONE 0.4 MG/ML 1 ML VIAL IV PRN (22:04)
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
[2023-10-12] MEDS ORDERED: ALPRAZolam 0.25 MG TAB PO PRN (23:54)
[2023-10-13] MEDS: ENOXAPARIN 40 MG/0.4 ML SYRINGE SQ SCH (08:20)
[2023-10-13] MEDS: FAMOTIDINE 20 MG TAB PO SCH (08:20)
[2023-10-13] MEDS: MAGNESIUM OXIDE 400 MG TAB PO SCH (08:20)
--- NOTE | 2023-10-13 09:27 | P.PN ---
Subjective Progress Note Date: 10/13/23 Subjective: Patient seen at bedside. No significant overnight events. Patient reports he forgot to mention to the overnight doctors that he has been seeing black spots that he claims are (floaters) in the peripheral field of his vision. He states that these have been getting larger and darker over time. Pertinent positives and negatives discussed above, a complete review of systems was preformed and all the other sytems were negative. Vitals Signs Reveiwed. General: non toxic, no distress, appears at stated age, normal weight Derm: no unusual rashes/lesions, warm Head: atraumatic, normocephalic, symmetric Eyes: EOMI, no lid lag, anicteric sclera, pupils equal round reactive to light ENT: Nose and ears atraumatic Neck: No cervical lymphadenopathy, trachea midline, supple Mouth: no lip lesion, mucus membranes moist Cardiovascular: S1S2 reg, no murmur, positive dorsalis pedis pulse bilateral, no edema Lungs: CTA bilateral, no rhonchi, no rales, no accessory muscle use Abdominal: soft, nontender to palpation, no guarding Ext: muscle strength 5 out of 5 in all 4 extremities grossly, no gross muscle atrophy, no contractures, Neuro: CN II-XI grossly intact, no gross focal neuro deficits Psych: Alert, oriented, appropriate affect Data Reveiwed Today: Patient Labs: No labs today. Pending folate and B12. Imaging: Pending EEG Assesment and Plan: 57-year-old male with no significant past medical history coming into the hospital concerned regarding episodes of forgetfulness and hand spasm. Patient admitted for for neurologic evaluation and workup of hand spasm and forgetfulness. Episodes of forgetfulness and hand spasm: CT of the brain without contrast and CT angio of the head and neck showed no acute intracranial pathology Continue with neurochecks every 2 hours x 6 then every 4 hours Neurology consult, will follow-up with their recommendations Fall precautions Consider rule out absence seizures, follow-up results of EEG. Will defer to neurology if MRI of the brain warranted while admitted Follow-up results of echo, ordered to rule out cardiac etiology for constellation of neurological symptoms. Ordered B12 and folate Blood work overall unremarkable: White count 6.3 hemoglobin 15.6 platelets 251 unremarkable INR 1 unremarkable Renal function unremarkable sodium 141 potassium 4.1 BUN 13 creatinine 0.97 Liver enzymes unremarkable total bili 0.6 AST 29 ALT 26 Troponins -0.012, EKG normal sinus rhythm no acute ST changes TSH unremarkable 2.56 Urine drug screen was negative Serum alcohol level was less than 10 Urinalysis unremarkable F none E none N heart healthy A normal ambulates at home unassisted DVT ppx: Lovenox 40 mg SQ daily Code Status: Full code Anticipated discharge place: Pending clinical course Anticipated discharge time: Pending medical course I have seen and evaluated the patient today. Discussed with the resident and agree with the residents subjective and objective as documented in the resid ent's note. The assessment and plan was discussed and outlined as below. MRI brain ordered. Echocardiogram ordered. Troponins negative x 2, ACS ruled out. B12 and Folate ordered. Neurology recommendations appreciated. Objective - Vital Signs Vital signs: Vital Signs Temp 97.7 F 10/13/23 04:00 Pulse 70 10/13/23 04:00 Resp 14 10/13/23 04:00 BP 119/72 10/13/23 04:00 Pulse Ox 99 10/13/23 04:00 FiO2 Intake & Output 10/12/23 10/13/23 10/13/23 18:59 06:59 18:59 Weight 82.554 kg 82.6 kg Other: # Voids 1 - Labs CBC & Chem 7: 10/12/23 18:50 10/12/23 18:40
[2023-10-13] MEDS: ACETAMINOPHEN TAB 325 MG TAB PO PRN (12:51)
--- NOTE | 2023-10-13 13:21 | EEG ---
ELECTROENCEPHALOGRAM REPORT PREAMBLE: This is a 57-year-old male, came to the hospital because of forgetfulness and some confusion. Rule out seizure. CURRENT MEDICATIONS: 1. Tylenol. 2. Xanax. 3. Lovenox. 4. Magnesium. EEG FINDINGS: This is a 21-channel digital EEG recorded with video component, utilizing 10/20 international system with referential and bipolar montages. Background consists of well developed, well regulated, moderate voltage activity in 10 hertz alpha. Background is posterior dominant and reactive to eye opening and closing. Photic driving response was not clearly seen. Drowsiness was seen with appearance of bilaterally symmetric theta frequency rhythm. However, more deeper stages of sleep were not seen. No focal or generalized epileptiform activity was seen. EKG channel showed no obvious arrhythmia. IMPRESSION: This is a normal awake and drowsy EEG. No focal, lateralized, or epileptiform activity was seen. MMODL / IJN: [id number] /
--- NOTE | 2023-10-13 16:28 | P.CNNES ---
History of Present Illness Consult date: 10/13/23 Requesting physician: Dee Padilla Reason for Consult: Memory loss, parasthesias History of Present Illness: Patient is a 57-year-old right-handed male, otherwise healthy came to the hospital yesterday at 4:44 PM for headache, locking hands and spacing out. Patient states that he does have history of sporadic throbbing left occipital headaches for the last 3 to 4 years, occurs about 3-4 times a month. He rates the headache about 7-8/10, and it lasts only for 10 to 15 minutes and goes away after he takes ibuprofen and Tylenol. He usually lays down and it helps. He denies any nausea or vomiting although he is noise sensitive but denies any light sensitivity. OTC medications take care of it. No previous history of migraines. Patient is also complaining of pain in the left side of the chest, around the lower part of his breast region. I would defer to primary physician about this later concern. Patient states that for the last 6 months, his hand sometimes cramps up off and on about couple times a week, lasting for 3 to 5 minutes. It is a typical charley horse/muscle cramp. He also complains of some memory loss, as sometimes he does not know what he is doing. This has been going on for 6 months. He gives an example, that when he is working or putting out the trash, he forgets what he came out for. He denies any hallucinations. Patient states that he does have history of anxiety and depression, and he gets anxiety attacks suddenly, which goes up to 8-9/10 on a scale of 1-10 where 10 is the worst. He tried Xanax, but did not work. He was given another medication the name he does not remember, which works well for it. His anxiety is so significant that he bites his nails. Vital signs on arrival blood pressure 120/80, pulse rate 76 temperature 98.4. Blood test shows normal CBC, PT PTT, normal CMP, negative troponin. UA negative. Urine drug screen negative, blood alcohol level negative. Chest x- ray showed no evidence for acute pulmonary disease. EKG showed sinus rhythm. CT head revealed no acute intracranial process. I personally reviewed CT head, agree with the findings. Visualized paranasal sinuses are clear. External auditory canal is clear. Patient states he has history of transient vertigo in January 2023. Review of Systems Constitutional: Denies chills, Denies fever Eyes: denies blurred vision, denies diplopia, denies pain, denies loss of vision Ears: deny: decreased hearing, ear discharge Ears, nose, mouth and throat: Reports headache (Chronic, sporadic), Reports vertigo (1 episode in January 2023.), Denies sore throat Cardiovascular: Reports chest pain (As per HPI), Denies lightheadedness, Denies shortness of breath, Denies syncope Respiratory: Denies cough, Denies excessive sputum Gastrointestinal: Denies abdominal pain, Denies diarrhea, Denies nausea, Denies vomiting Musculoskeletal: Reports muscle cramps, Denies neck pain Integumentary: Denies pruritus, Denies rash Neurological: Reports as per HPI Psychiatric: Reports anxiety, Reports depression Past Medical History Past Medical History: No Reported History History of Any Multi-Drug Resistant Organisms: None Reported Past Surgical History: Appendectomy Past Psychological History: Anxiety, Bipolar, Depression Smoking Status: Never smoker Past Alcohol Use History: Rare Past Drug Use History: None Reported Medications and Allergies Home Medications Medication Instructions Recorded Confirmed Type Magnesium Oxide [Mag-Ox] 400 mg PO DAILY 10/12/23 10/12/23 History Allergies Allergy/AdvReac Type Severity Reaction Status Date / Time No Known Allergies Allergy Verified 10/12/23 21:06 Physical Examination - Vital Signs Vital Signs: Vital Signs Temp Pulse Pulse Resp BP BP Pulse Ox 10/13/23 08:11 97.8 F 74 18 132/80 97 10/13/23 04:00 97.7 F 70 14 119/72 99 10/12/23 23:11 65 18 112/81 99 10/12/23 22:39 98.0 F 80 18 108/68 98 10/12/23 22:07 64 16 113/71 96 10/12/23 21:00 72 12 130/75 97 10/12/23 20:00 71 18 130/75 96 10/12/23 16:46 98.4 F 76 20 124/80 94 L Intake and Output 10/12/23 10/13/23 10/13/23 22:59 06:59 14:59 Intake Total 128 Balance 128 Intake: IV 10 Invasive Line 1 10 Oral 118 Other: Voiding Method Toilet # Voids 1 Weight 82.554 kg 82.6 kg Patient is a middle aged male, in no acute distress. Patient appears somewhat anxious. Patient is alert awake oriented to time place and person. Speech and language functions are normal. Patient can name and repeat very well. No aphasia or dysarthria. Attention, concentration and fund of knowledge is adequate. On cranial nerve examination, pupils are equal, round and reacting to light, visual paredes are full on confrontation, with no neglect on double simultaneous stimulation. Extraocular muscles are intact with no nystagmus. Face is symmetric, tongue protrudes to the midline. Palatal elevation and sensation normal, hearing and shoulder shrug normal, facial sensation normal. On muscle strength testing, there is no pronator drift and the strength is nor mal in arms and legs distally and proximally, except left deltoid which is about 5-related to previous shoulder issues, likely rotator cuff. 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 Rest of the strength is normal. Deep tendon reflexes are symmetric 2+ at the biceps, 2+ brachioradialis, 2+ at the knees, 1+ ankles and plantars are possible upgoing. Sensory to touch is equal with no neglect on double simultaneous stimulation. Cerebellar function showed no ataxia for [id number] testing. No dysdiadochokinesia. No ataxia for [id number] testing on either side. Tone and bulk of muscles normal. Gait deferred.. On general examination, there is no carotid bruit or murmur, S1-S2 audible. Chest is clear on consultation. Abdomen is soft nontender. No organomegaly, bowel sounds present. Peripheral pulses are present. No peripheral edema. Results - Laboratory Findings CBC and BMP: 10/12/23 18:50 10/12/23 18:40 Assessment and Plan Assessment: * Sporadic, intermittent headache off and on for 3 to 4 years, likely tension type. The headache last for about 15 to 20 minutes, and resolved with OTC medication. * Intermittent cramps in the hands, unclear cause. * Left shoulder pain and weakness, likely from rotator cuff. * Forgetfulness, unclear cause. * Anxiety and depression * Left-sided chest pain, unclear cause. Plan: * Patient is complaining of memory issues. Patient undergoing MRI of the brain. * EEG was performed, which was normal awake and drowsy EEG. No focal, lateralized or epileptiform activity was seen. * 2D echo has been completed, results pending. * CTA of head and neck revealed no evidence of dissection of the cervical internal carotid arteries or vertebral arteries or any evidence of significant stenosis in the carotid bifurcation. No evidence of intracranial high-grade stenosis or intracranial aneurysm. Left posterior circulation and at peak variant. Left vertebral artery dominance. * B12 406, folate 14.4, TSH 2.56. * Patient is complaining of some cramping of the hands, also has brisk reflexes. Recommend MRI of the cervical spine. * Regarding left-sided chest pain, we will defer to IM. 2D echo pending. * Regarding left shoulder weakness, suggest follow-up with orthopedic surgeon rule out rotator cuff tear. * Neurology will follow. Thank you for the consult. Addendum: Discussed with primary physician. Patient desperate to go home. He states that he would not stay here. I would prefer having testing done as an inpatient, but can be done as an outpatient as well. Recommend follow-up with neurologist.
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
--- NOTE | 2023-10-13 17:41 | CA ---
Transthoracic Echo Report Name: James Roche Age: 57 Gender: M : 1965 Exam Date: 10/13/2023 09:04 Exam Location: [facility] Ht (in): 72 Wt (lb): 182 Ordering Physician: Laxmi Cancino MD Attending/Referring Phys: [employer] Liliya Sanchez RDCS Procedure CPT: Indications: CP Cardiac Hx: Technical Quality: Good Contrast 1: Total Dose (mL): Contrast 2: Total Dose (mL): MEASUREMENTS (Male / Female) Normal Values 2D ECHO LV Diastolic Diameter PLAX 4.5 cm 4.2 - 5.9 / 3.9 - 5.3 cm LV Systolic Diameter PLAX 2.9 cm IVS Diastolic Thickness 1.2 cm 0.6 - 1.0 / 0.6 - 0.9 cm LVPW Diastolic Thickness 1.0 cm 0.6 - 1.0 / 0.6 - 0.9 cm LV Relative Wall Thickness 0.5 RV Internal Dim ED PLAX 2.7 cm LA Systolic Diameter LX 3.6 cm 3.0 - 4.0 / 2.7 - 3.8 cm LV Diastolic Volume MOD BP 51.3 cm??? 67 - 155 / 56 - 104 cm??? LV Systolic Volume MOD BP 20.5 cm??? 22 - 58 / 19 - 49 cm??? LV Ejection Fraction MOD BP 60.1 % >= 55 % LV Cardiac Index MOD BP 959.5 cm???/min???m??? LV Diastolic Volume MOD 4C 59.1 cm??? LV Systolic Volume MOD 4C 25.6 cm??? LV Ejection Fraction MOD 4C 56.8 % LV Cardiac Index MOD 4C 1045.9 cm???/min???m??? LV Diastolic Length 4C 6.3 cm LV Systolic Length 4C 5.1 cm LV Diastolic Volume MOD 2C 42.6 cm??? LV Systolic Volume MOD 2C 15.9 cm??? LV Ejection Fraction MOD 2C 62.6 % LV Cardiac Index MOD 2C 830.6 cm???/min???m??? LV Diastolic Length 2C 5.9 cm LV Systolic Length 2C 4.9 cm M-MODE Aortic Root Diameter MM 3.5 cm LA Systolic Diameter MM 3.2 cm LA Ao Ratio MM 0.9 AV Cusp Separation MM 2.0 cm DOPPLER TR Peak Velocity 190.7 cm/s TR Peak Gradient 14.5 mmHg Right Ventricular Systolic Press 19.6 mmHg FINDINGS Left Ventricle Left ventricular ejection fraction is estimated at 55-60 %. Mildly increased septal wall thickness. Normal left ventricular systolic function with no obvious regional wall motion abnormalities. Right Ventricle Normal right ventricular size and function. Right ventricular systolic pressure within normal limits. Right Atrium Normal right atrial size. Left Atrium Normal left atrial size. Mitral Valve Structurally normal mitral valve. Trace mitral regurgitation. No mitral stenosis. Aortic Valve Trileaflet aortic valve. Trace aortic regurgitation. No aortic stenosis. Tricuspid Valve Structurally normal tricuspid valve. Trace to mild tricuspid regurgitation. No tricuspid stenosis. Pulmonic Valve Structurally normal pulmonic valve. Trace pulmonic regurgitation. Pericardium No pericardial or pleural effusion. Aorta Normal size aortic root and proximal ascending aorta. CONCLUSIONS Normal LV function Previewed by: Dr. Arvin Yanez MD (Electronically Signed) Final Date: 13 October 2023 17:40
[2023-10-13 18:22] VITALS: BP 107/66; PULSE 68; RESP 16; TEMP 97.5
== END 2023-10-13 18:18 | disposition home or self-care (01) ==
LOC: EC 16:44 → 3SCARD 22:07
PROVIDERS: ADMIT Internal Medicine; ATTEND Internal Medicine
DX: F31.9 Bipolar disorder, unspecified (principal); F41.9 Anxiety disorder, unspecified; I10 Essential (primary) hypertension; R53.1 Weakness; R41.3 Other amnesia; R20.2 Paresthesia of skin; R51.9 Headache, unspecified; R25.2 Cramp and spasm
CPT/HCPCS: 96372; 99285; 36415; 95816; 93005; 93306; 80053; 82607; 82550; 82746; 83735; 84443; 84484 ×2; 85025; 85610; 85730; 81003; 80306; 80320; 71046; 70496; 70450; 70498; G0378 ×2; J1650; Q9967